=== PATIENT | female | born 1940 | race Caucasian/White ===

== ENCOUNTER → 2020-04-16 10:44 | Outpatient (BNVA) | payer MEDICARE, BC, SELFPAY | PROVIDERS: Visit Provider Nurse Practitioner Family | DX: E78.5 Hyperlipidemia, unspecified (principal); M19.90 Unspecified osteoarthritis, unspecified site; L30.9 Dermatitis, unspecified; R42 Dizziness and giddiness; F39 Unspecified mood [affective] disorder | CPT/HCPCS: 80053; 80061; 85025; 85651; 86038; 86140; 86431 ==

== ENCOUNTER → 2020-07-11 11:25 | Outpatient (BNVA) | payer MEDICARE, BC, SELFPAY | PROVIDERS: Visit Provider Internal Medicine Rheumatology | DX: Z79.899 Other long term (current) drug therapy (principal); Z11.59 Encounter for screening for other viral diseases; Z11.1 Encounter for screening for respiratory tuberculosis; M19.041 Primary osteoarthritis, right hand; M19.042 Primary osteoarthritis, left hand; M70.61 Trochanteric bursitis, right hip; M70.62 Trochanteric bursitis, left hip; Y93.9 Activity, unspecified; R76.8 Other specified abnormal immunological findings in serum | CPT/HCPCS: 36415; 81001; 82306; 85025; 85651; 86140; 86480; 86704; 86803; 87340; 99204 ==

== ENCOUNTER → 2020-08-12 13:53 | Outpatient (BNVA) | payer MEDICARE, BC, SELFPAY | PROVIDERS: PCP Nurse Practitioner Family; Visit Provider Internal Medicine Rheumatology | DX: M35.3 Polymyalgia rheumatica (principal); R76.8 Other specified abnormal immunological findings in serum; Z79.899 Other long term (current) drug therapy; M19.041 Primary osteoarthritis, right hand; M19.042 Primary osteoarthritis, left hand; M54.32 Sciatica, left side; Z79.52 Long term (current) use of systemic steroids | CPT/HCPCS: 99214 ==

== ENCOUNTER → 2020-12-05 10:24 | Outpatient (BNVA) | payer MEDICARE, BC, SELFPAY | PROVIDERS: PCP Nurse Practitioner Family; Visit Provider Nurse Practitioner Family | DX: E78.5 Hyperlipidemia, unspecified (principal) | CPT/HCPCS: 80053; 80061; 85025 ==

== ENCOUNTER 2021-02-07 10:05 | Outpatient (CLI) | payer MEDICARE, BC, SELFPAY ==
--- NOTE | 2021-02-07 10:10 | XR_ITS ---
WS: [id number] HIPS BILATERAL TECHNIQUE: 5 views bilateral hips Including pelvis CLINICAL INFORMATION: M25.551 - Pain in right hip, PAIN IN LEFT HIP COMPARISON: None. FINDINGS: Moderate degenerative arthritis both hips with joint space narrowing. No acute fractures. Normal pubi c rami. Pelvic phleboliths. Mild degenerative arthritis sacroiliac joints. No acute fractures. XR/XR hip BI m 5V wo/w pel* [id number] IMPRESSION: Moderate degenerative arthritis both hips with joint space narrowing. No acute fractures.
--- NOTE | 2021-02-07 10:15 | MR_ITS ---
WS: [id number] MRI LUMBAR SPINE NONCONTRAST TECHNIQUE: Sagittal T1, T2 and STIR imaging. Axial T1 and T2 imaging. CLINICAL INFORMATION: M54.5 - Low back pain COMPARISON: None. FINDINGS: Mild lumbar curve. No acute compression. Slight anterolisthesis L4 on L5. L1-L2: Mild annular bulging. Tiny central protrusion. Slight narrowing of the left subarticular reces s. Foramen are patent. L2-L3: Mild annular bulging with narrowing of subarticular recess bilaterally. Mild facet arthropathy . Mild bilateral foraminal narrowing. Spinal canal is patent. Mild facet arthropathy. L3-L4: Mild annular bulging. Narrowing subarticular recess bilaterally. Foramen are patent. Mild face t arthropathy. L4-L5: Grade 1 anterolisthesis L4 on L5. Left synovial cyst measuring 8 x 7 mm with impingement on th e left subarticular recess and traversing left L5 nerve root. Moderate central canal stenosis. Edema in the left L4 and L5 facets small amount of periarticular soft tissue edema consistent with synoviti s. Moderate facet arthropathy. Foramen are patent. L5-S1: Mild annular bulging. Mild to moderate facet arthropathy. Spinal canal and foramen are patent. Left renal cyst measuring 1.7 CM. Smaller right renal cyst. Tarlov cysts in the sacrum. MR/MR lumbar spine wo con* [id number] IMPRESSION: 1. Mild lumbar curve. No acute compression. 2. Left L4-5 synovial cyst measuring 8 x 7 mm with moderate central canal sten osis. Impingement traversing left L5 nerve root. 3. Small amount of edema in the left L4-L5 and L5-S1 facets with periarticular soft tissue edema consistent with synovitis. 4. Tiny central disc protrusion L1-2. 5. Annular bulging L2-3 and L3-4 with narrowing of the subarticular recess yaz aterally. 6. Mild bilateral L2-3 foraminal narrowing with small bilateral foraminal prot rusions. 7. Moderate facet arthropathy L4-L5.
== END 2021-02-07 10:06 | disposition home or self-care (01) ==
PROVIDERS: PCP Nurse Practitioner Family; Visit Provider Nurse Practitioner Family
DX: M47.816 Spondylosis without myelopathy or radiculopathy, lumbar region (principal); M51.26 Other intervertebral disc displacement, lumbar region; R60.0 Localized edema; M71.38 Other bursal cyst, other site; M16.0 Bilateral primary osteoarthritis of hip
CPT/HCPCS: 72148; 73523

== ENCOUNTER 2021-02-07 10:24 | Outpatient (CLI) | payer MEDICARE, BC, SELFPAY ==
--- NOTE | 2021-02-07 12:00 | XR_ITS ---
WS: [id number] SCREENING DEXA SCAN [employer] CLINICAL INFORMATION: screeening for osteoporosis COMPARISON: None. FINDINGS: The L1-L4 bone mineral density measures 0.778 g/cm2. This corresponds to a T score score of -3.3 and Z score of -1.7. Left femoral neck bone mineral density measures 0.771 g/cm2. This corresponds to a T score of -1.9 an d Z score of 0.0. Right femoral neck bone mineral density measures 0.798 g/cm2. This corresponds to a T score -1.7of an d Z score of 0.2. Mean femoral neck bone mineral density measures 0.785 g/cm2. This corresponds to a T score of -1.8 an d Z score of 0.1. XR/XR DEXA axial skeleton* [id number] IMPRESSION: Osteoporosis Patient's FRAX calculated 10 year probability for major osteoporotic fracture i s 16.6 % and osteoporotic hip fracture is 5.1%.
== END 2021-02-07 10:25 | disposition home or self-care (01) ==
PROVIDERS: PCP Nurse Practitioner Family; Visit Provider Internal Medicine Rheumatology
DX: Z79.52 Long term (current) use of systemic steroids (principal); M81.0 Age-related osteoporosis without current pathological fracture
CPT/HCPCS: 77080

== ENCOUNTER 2021-03-18 06:00 | Outpatient (RCR) | payer MEDICARE, BC, SELFPAY | END 2021-04-09 23:59 | disposition home or self-care (01) | LOC: TPT 06:00 | PROVIDERS: PCP Nurse Practitioner Family; Referring Provider Nurse Practitioner Family; Visit Provider Nurse Practitioner Family | DX: M25.552 Pain in left hip (principal) | CPT/HCPCS: 97110; 97162 ==

== ENCOUNTER → 2021-10-20 11:59 | Outpatient (BNVA) | payer MEDICARE, BC, SELFPAY | PROVIDERS: PCP Nurse Practitioner Family; Visit Provider Nurse Practitioner Family | DX: J32.9 Chronic sinusitis, unspecified (principal); R05.9 Cough, unspecified; R50.9 Fever, unspecified; Z11.52 Encounter for screening for COVID-19; Z13.9 Encounter for screening, unspecified | CPT/HCPCS: 87635 ==

== ENCOUNTER → 2022-01-06 10:32 | Outpatient (BNVA) | payer MEDICARE, BC, SELFPAY | PROVIDERS: PCP Nurse Practitioner Family; Visit Provider Nurse Practitioner Family | DX: F39 Unspecified mood [affective] disorder (principal); E78.5 Hyperlipidemia, unspecified; M35.3 Polymyalgia rheumatica; M19.90 Unspecified osteoarthritis, unspecified site; Z78.0 Asymptomatic menopausal state | CPT/HCPCS: 80053; 80061; 82306; 84443; 86140 ==

== ENCOUNTER → 2023-02-15 10:51 | Outpatient (BNVA) | payer MEDICARE, BC, SELFPAY | PROVIDERS: PCP Nurse Practitioner Family; Visit Provider Nurse Practitioner Family | DX: F39 Unspecified mood [affective] disorder (principal); E55.9 Vitamin D deficiency, unspecified; E78.5 Hyperlipidemia, unspecified; J02.9 Acute pharyngitis, unspecified; K21.9 Gastro-esophageal reflux disease without esophagitis | CPT/HCPCS: 80053; 80061; 82306; 84443; 85025 ==

== ENCOUNTER → 2023-06-28 09:43 | Outpatient (BNVA) | payer MEDICARE, BC, SELFPAY | PROVIDERS: PCP Nurse Practitioner Family; Visit Provider Nurse Practitioner Family | DX: I95.1 Orthostatic hypotension (principal); R42 Dizziness and giddiness | CPT/HCPCS: 80053; 85025 ==

== ENCOUNTER 2023-07-27 09:29 | Outpatient (RCR) | payer MEDICARE, BC, SELFPAY | END 2023-08-10 23:59 | disposition home or self-care (01) | LOC: SPT 09:29 | PROVIDERS: PCP Nurse Practitioner Family; Visit Provider Nurse Practitioner Family | DX: R42 Dizziness and giddiness (principal) | CPT/HCPCS: 95992; 97112; 97161 ==

== ENCOUNTER 2023-08-12 14:00 | Outpatient (CLI) | payer MEDICARE, BC, SELFPAY ==
--- NOTE | 2023-08-12 14:18 | MR_ITS ---
WS: [id number] MRI BRAIN WITH AND WITHOUT CONTRAST HISTORY: DIZZINESS AND GIDDINESS COMPARISON: None available. TECHNIQUE: Multiplanar imaging performed through the brain with MultiHance 14 ml's IV. No acute infarcts are seen. Campos-white matter differentiation is well preserved. Moderate bilateral s ymmetric atrophy and volume loss. Moderate T2 and FLAIR signal hyperintense foci in the periventricul ar white matter. Mild small vessel ischemic disease in the negrito. No large territory infarct. No susceptibility artifacts or prior lacunar infarcts. Ventricles and extra-axial spaces are normal. Clivus and pituitary gland are normal. Visualized posterior fossa and brainstem are also normal. Postcontrast images are negative for masses or vascular malformations. Dural venous sinuses are normal. Paranasal sinuses: Well aerated with no significant disease. Mastoid air cells: Normal. Calvarium and scalp: Normal. IMPRESSION: 1. No acute infarct or hemorrhage. 2. Moderate cerebral atrophy and small vessel ischemic disease. 3. No masses or vascular malformations. 4. No mass or signal abnormality at the cerebellopontine angles or along the internal auditory canal s.
[2023-08-12] MEDS: gadobenate dimeglumine 20 mL vial IV (15:37)
== END 2023-08-12 14:01 | disposition home or self-care (01) ==
LOC: RAD 14:00
PROVIDERS: PCP Nurse Practitioner Family; Visit Provider Otolaryngology
DX: R42 Dizziness and giddiness (principal); G31.9 Degenerative disease of nervous system, unspecified; I67.89 Other cerebrovascular disease
CPT/HCPCS: 70553; A9577

== ENCOUNTER 2023-09-06 13:00 | Outpatient (CLI) | payer MEDICARE, BC, SELFPAY | END 2023-09-06 13:01 | disposition home or self-care (01) | LOC: SLEEP 09-07 13:58 | PROVIDERS: PCP Nurse Practitioner Family; Visit Provider Nurse Practitioner Family | DX: G47.33 Obstructive sleep apnea (adult) (pediatric) (principal); G47.36 Sleep related hypoventilation in conditions classified elsewhere; G47.10 Hypersomnia, unspecified | CPT/HCPCS: G0399 ==

== ENCOUNTER 2023-11-09 11:12 | Outpatient (CLI) | payer MEDICARE, BC, SELFPAY ==
--- NOTE | 2023-11-09 11:15 | USCV_ITS ---
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 MANAGER Technologist: ABBY Exam Location: [facility] [place] Indication: DIZZINESS Risk Factors: Unknown Previous Vascular Surgery: None Right Brachial BP: / Left Brachial BP: / Right Left Velocity (cm/s) Spectral Plaque Velocity (cm/s) Spectral Plaque Syst/Diast Broadening Syst/Diast Broadening 108.10/17.60 Prox CCA 88.90 / 18.80 66.20/ 19.80 Mid CCA 111.90/ 13.70 78.30/ 13.20 Hetro Distal CCA 85.40 / 24.80 Hetro 72.80/ 23.20 Prox ICA 58.00 / 14.30 48.60/ 11.20 Mid ICA 65.10 / 21.50 61.10/ 18.40 Distal ICA 69.00 / 20.80 79.40 ECA 58.60 1.10 ICA/CCA 0.62 Antegrade Vertebral Antegrade 34.20/ 11.80 cm/s 48.80/ 11.10 cm/s Tri Subclavian Tri 82.00 51.40 FINDINGS Comparison: none available. No significant elevation of systolic or diastolic velocities. Diffuse bilateral scattered calcified plaque and intimal thickening throughout the common carotid arteries and extending through the bifurcation. Antegrade vertebral arteries. CONCLUSIONS Bilateral ICA stenosis less than 50%. Dr. Elyssa Williamson DO (Electronically Signed) Final Date: 09 November 2023 13:39 S
== END 2023-11-09 11:13 | disposition home or self-care (01) ==
LOC: RAD 11:12
PROVIDERS: PCP Nurse Practitioner Family; Visit Provider Nurse Practitioner Family
DX: R42 Dizziness and giddiness (principal); R26.81 Unsteadiness on feet; I65.23 Occlusion and stenosis of bilateral carotid arteries
CPT/HCPCS: 93880

== ENCOUNTER → 2024-01-13 09:26 | Outpatient (BNVA) | payer MEDICARE, BC, SELFPAY | PROVIDERS: PCP Nurse Practitioner Family; Visit Provider Nurse Practitioner Family | DX: R07.9 Chest pain, unspecified (principal) | CPT/HCPCS: 93005 ==

== ENCOUNTER 2024-01-13 10:48 | Observation (INO) | payer MEDICARE, BC, SELFPAY ==
[2024-01-13] VITALS (9 sets, daily range): BP systolic 119–146; BP diastolic 65–85; PULSE 60–73; RESP 14–19; TEMP 36.7–36.8; O2SAT 93–100; BMI 25.8; BMI 28.3
--- NOTE | 2024-01-13 10:52 | XR_ITS ---
WS: [id number] Examination: XR chest 1V portable [id number] Reason for Exam: cp Date: January 13, 2024 Comparison: None. Findings: The heart is prominent in size. A large hiatal hernia is suspected. The mediastinum is not widened There is no edema or effusion. There is no dense consolidation. Impression: There is cardiomegaly without failure A large hiatal hernia is suspected.
--- NOTE | 2024-01-13 10:53 | ECG_ITS ---
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 Measurements Intervals [place] Rate: 57 P: 139 [place]: 156 QRS: 29 QRSD: 87 T: 110 QT: 450 QTc: 442 Interpretive Statements ECTOPIC ATRIAL BRADYCARDIA Nonspecific T wave changes LOW QRS VOLTAGE IN PRECORDIAL LEADS [QRS DEFLECTION < 1.0 mV IN CHEST LEADS] SEPTAL MYOCARDIAL INFARCTION , PROBABLY OLD [40+ ms Q WAVE IN V1/V2] No previous ECG available for comparison Electronically Signed On 01-13-2024 14:03:37 CDT by Leora Ocampo M.D. [email or web address].[email or web address]/store/NU/[id number] f
--- NOTE | 2024-01-13 10:53 | ED_ITS ---
HPI - Chest Pain 2 General: Chief Complaint: Chest Pain Stated Complaint: chest pain Time Seen by Provider: 01/13/24 10:50 Source: patient and EMS Mode of arrival: EMS Limitations: no limitations History of Present Illness: 83-year-old female states that last 2 da ys she has been having chest pain states that a dull ache in the center of her chest she went to the clinic today and then called EMS she had 324 aspirin they did give her nitro and states that resolved her pain. She has no history of heart disease she denies any worsening factors denies any shortness of breath denies any nausea. Associated symptoms: Deny abdominal pain, fever(s), nausea or vomiting Review of Systems 2 Const: Denies: fever(s), chills, body aches or change in appetite Eyes: Denies: blurry vision or eye discomfort ENMT: Denies: throat pain or dental pain Card: Reports: chest pain GI: Denies: abdominal pain, nausea, vomiting or diarrhea Musc: Denies: neck pain or back pain Skin/Breast: Denies: rash Neuro: Denies: headache(s) PFSH ED 2 PFSH: Medical History GERD (gastroesophageal reflux disease) Sciatica, left side SS-A antibody positive Encounter for counseling regarding immunization High risk medication use Osteoarthritis of hands, bilateral Joint pain Positive RIVERA (antinuclear antibody) PMR (polymyalgia rheumatica) Mood disorder Seasonal allergies Hyperlipidemia Surgical History No history of previous surgery Family History Other CAD (coronary artery disease) Cancer Hyperlipidemia Hypertension Lung disease Rheumatoid arthritis Stroke Denies family history of Diabetes Lupus Chronic kidney disease (CKD) Family history of premature coronary artery disease Social History Smoking and tobacco/nicotine status: never used tobacco/nicotine Second hand smoke exposure: No Alcohol intake: never Substance/Drug Use: never Lives independently: Yes Household members: spouse Marital status: service: No Current occupational status: employed Current occupation: [employer] Current gender identity: Female Special gino needs: No Agree to transfusion: Yes Physical Exam 2 Const: COMMON NORMALS: no acute distress, patient oriented x3 and healthy appearing HENMT: COMMON NORMALS: normocephalic and atraumatic HEAD & SCALP: n ormocephalic and atraumatic Eye: COMMON NORMALS: Equal, round and reactive pupils present and EOMs intact bilaterally PUPIL: Yes Equal, round and reactive pupils present Neck/C-Spine: COMMON NORMALS: full ROM and supple Chest: COMMONS NORMALS: normal inspection of the chest and normal palpation of entire chest wall Resp: COMMON NORMALS: normal respiratory effort, No retractions, No use of accessory muscles and clear to auscultation bilaterally AUSCULTATION: clear to auscultation bilaterally Cardio: COMMON NORMALS: regular rate, regular rhythm and No murmurs present (Cardio) RATE: regular rate RHYTHM: regular rhythm GI: COMMON NORMALS: Normal to inspection, nondistended, normoactive bowel sounds present, Soft to palpation, non-tender and no masses PALPATION: Yes Soft to palpation Extremity: COMMON NORMALS: normal to inspection and full ROM Neuro: COMMON NORMALS: patient oriented x3, moves all extremities and no focal motor deficits Psych: COMMON NORMALS: mental status grossly normal, Normal thought process present and cooperative THOUGHT PROCESS: Normal thought process present Skin: COMMON NORMALS: no rashes or lesions noted and no wounds GENERAL SKIN EXAM: no rashes or lesions noted Course 2 Vital Signs: Vital signs: Vital Signs Temperature 98.1 F 01/13/24 10:59 Pulse Rate 62 01/13/24 10:54 Respiratory Rate 18 01/13/24 10:54 Blood Pressure 125/85 01/13/24 10:54 Pulse Oximetry 100 01/13/24 10:54 Oxygen Delivery Me thod Room Air 01/13/24 10:54 MDM - Chest Pain Medical Decision Making Patient presents here chest pain pain was resolved with nitro for troponin was negative she has had no history of heart disease was never had any cardiac workup she does have T wave inversion in V1 will admit for observation this time. Medical Records I reviewed the patient's medical records. Lab Data I reviewed the patient's lab results. 01/13/24 11:22 01/13/24 10:58 Laboratory Results WBC 4.16 10^3/uL (3.29-11.43) 01/13/24 11:22 Corrected WBC Cancelled 01/13/24 10:58 RBC 4.09 10^6/uL (3.85-5.65) 01/13/24 11:22 Hgb 13.30 g/dL (11.27-16.99) 01/13/24 11:22 Hct 39.7 % (36-47) 01/13/24 11:22 MCV 97.1 fl (85-98) 01/13/24 11:22 MCH 32.5 pg (27-33) 01/13/24 11:22 MCHC 33.5 g/dL (30-55) 01/13/24 11:22 RDW 13.2 % (12.1-15.1) 01/13/24 11:22 Plt Count 218 10^3/cmm (157-399) 01/13/24 11:22 MPV 10.3 fL (7.4-10.4) 01/13/24 11:22 Gran % Cancelled 01/13/24 10:58 Neut % (Auto) 57.0 % 01/13/24 11:22 Lymph % (Auto) 26.0 % 01/13/24 11:22 [place] % (Auto) 10.6 % 01/13/24 11:22 Eos % (Auto) 5.0 % 01/13/24 11:22 Baso % (Auto) 1.2 % 01/13/24 11:22 Neut # (Auto) 2.37 10^3/uL (1.8-7.7) 01/13/24 11:22 Lymph # (Auto) 1.1 10^3/uL (0.8-4.8) 01/13/24 11:22 [place] # (Auto) 0.4 10^3/uL (0.2-0.9) 01/13/24 11:22 Eos # (Auto) 0.2 10^3/uL (0.0-0.8) 01/13/24 11:22 Baso # (Auto) 0.1 10^3/uL (0.0-0.1) 01/13/24 11:22 Absolute Gran (auto) Cancelled 01/13/24 10:58 Nucleated RBC % (auto) 0 % 01/13/24 11:22 Nucleated RBCs # 0.0 /100WBC 01/13/24 11:22 PT Cancelled 01/13/24 10:58 INR Cancelled 01/13/24 10:58 Sodium 139 mmol/L (136-145) 01/13/24 10:58 Potassium 4.4 mmol/L (3.5-5.1) 01/13/24 10:58 Chloride 106 mmol/L (98-107) 01/13/24 10:58 Carbon Dioxide 24 mmol/L (22-29) 01/13/24 10:58 Anion Gap 13.4 (5-19) 01/13/24 10:58 BUN 9 mg/dL (8-23) 01/13/24 10:58 Creatinine 0.5 mg/dL (0.5-0.9) 01/13/24 10:58 GFR Calculation Not Reportable 01/13/24 10:58 Glucose 83 mg/dL (65-115) 01/13/24 10:58 Calculated Osmolality 286 mOsm/kg (285-295) 01/13/24 10:58 Calcium 8.4 mg/dL (8.5-10.5) L 01/13/24 10:58 Total Bilirubin 0.9 mg/dL (0.15-1.2) 01/13/24 10:58 AST 16 U/L (0-32) 01/13/24 10:58 ALT 10 U/L (0-33) 01/13/24 10:58 Alkaline Phosphatase 58 U/L (35-105) 01/13/24 10:58 Troponin T Baseline 7 ng/L (0-10) 01/13/24 10:58 Total Protein 6.0 g/dL (6.6-8.7) L 01/13/24 10:58 Albumin 3.7 g/dL (3.5-5.2) 01/13/24 10:58 Globulin 2.3 g/dL (1.3-4.6) 01/13/24 10:58 Lipase 47 U/L (13-60) 01/13/24 10:58 All radiology interpretation(s) finalized by discharge EKG Data EKG 1: I personally reviewed and interpreted this EKG as follows: EKG interpretation date: 01/13/24 EKG interpretation time: 10:53 Interpretation: sinus yobani hr [address] elevation qrs 87 qtc 445 Discharge Plan Discharge Condition: Stable Prescriptions: No Action ibuprofen 200 mg capsule 200 mg PO BEDTIME PRN (Reason: Sleep) meclizine 25 mg tablet 25 mg PO TID PRN (Reason: dizziness) Qty: 30 0RF (DME) auto titrating cpap at 6-16cm See Rx Instructions .Route .MEDSUPPLY Qty: 1 0RF Rx Instructions: As directed fluticasone propionate 50 mcg/actuation spray,suspension 2 spray INTRANASAL DAILY PRN (Reason: Allergy Symptoms) Laxative Pills 25 mg Tablet 25 mg PO QPM escitalopram oxalate 20 mg tablet 20 mg PO BEDTIME Referrals: Patt Chan, LASHAUN [Primary Care Provider] - Coding Level of Care Code ED Engineering Officer for Russg Anatoliy
[2024-01-13 11:24] LABS: Alanine Aminotransferase 10 U/L (0-33); Albumin Level 3.7 g/dL (3.5-5.2); Alkaline Phosphatase 58 U/L (35-105); Anion Gap 13.4 (5-19); Aspartate Amino Transferase 16 U/L (0-32); Blood Urea Nitrogen 9 mg/dL (8-23); Calcium 8.4 mg/dL (8.5-10.5); Carbon Dioxide 24 mmol/L (22-29); Chloride 106 mmol/L (98-107); Creatinine Clr Calc Pharmacy 54.3464; Globulin 2.3 g/dL (1.3-4.6); Glucose 83 mg/dL (65-115); Lipase 47 U/L (13-60); Osmolality Calculated 286 mOsm/kg (285-295); Potassium 4.4 mmol/L (3.5-5.1); Sodium 139 mmol/L (136-145); Total Bilirubin 0.9 mg/dL (0.15-1.2)
[2024-01-13 11:25] LABS: Troponin(5th) Baseline 7 ng/L (0-10)
[2024-01-13 11:29] LABS: Basophils # 0.1 10^3/uL (0.0-0.1); Basophils % 1.2 %; Eosinophils # 0.2 10^3/uL (0.0-0.8); Hematocrit 39.7 % (36-47); Lymphocytes # 1.1 10^3/uL (0.8-4.8); Mean Corpuscular HGB Conc 33.5 g/dL (30-55); Mean Corpuscular Hemoglobin 32.5 pg (27-33); Mean Corpuscular Volume 97.1 fl (85-98); Mean Platelet Volume 10.3 fL (7.4-10.4); Monocytes # 0.4 10^3/uL (0.2-0.9); Monocytes % 10.6 %; Neutrophils # 2.37 10^3/uL (1.8-7.7); Nucleated Red Blood Cells % 0 %; Platelet Count 218 10^3/cmm (157-399); Red Blood Count 4.09 10^6/uL (3.85-5.65); Red Cell Distribution Width 13.2 % (12.1-15.1); White Blood Count 4.16 10^3/uL (3.29-11.43)
--- NOTE | 2024-01-13 12:53 | ECG_ITS ---
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 Measurements Intervals [place] Rate: 55 P: 146 IN: 154 QRS: 21 QRSD: 74 T: 113 QT: 464 QTc: 447 Interpretive Statements ECTOPIC ATRIAL BRADYCARDIA LOW QRS VOLTAGE IN PRECORDIAL LEADS [QRS DEFLECTION < 1.0 mV IN CHEST LEADS] SEPTAL MYOCARDIAL INFARCTION , PROBABLY OLD [40+ ms Q WAVE IN V1/V2] Compared to ECG 01/13/2024 10:53:00 No significant changes Electronically Signed On 01-14-2024 17:27:46 CDT by Leora Ocampo M.D. [email or web address]/store/OM/[id number]
[2024-01-13 13:21] LABS: INR 1.01 (0.8-1.2)
[2024-01-13 13:29] LABS: Troponin 5 2HR 9.07 ng/L (0-10); Troponin 5 2HR Delta 2.07 ABS# (0-10)
--- NOTE | 2024-01-13 14:30 | ECG_ITS ---
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 Measurements Intervals [place] Rate: 63 P: 56 SD: 154 QRS: -6 QRSD: 75 T: 21 QT: 422 QTc: 432 Interpretive Statements SINUS RHYTHM SEPTAL MYOCARDIAL INFARCTION , PROBABLY OLD [40+ ms Q WAVE IN V1/V2] Compared to ECG 01/13/2024 12:59:37 Bradycardia, nonsinus no longer present Myocardial infarct finding still present Electronically Signed On 01-14-2024 17:03:57 CDT by Leora Ocampo M.D. [email or web address] Power [email or web address] behavioral [email or web address]. [email or web address] hospital.BATS/store/OM/[id number]
--- NOTE | 2024-01-13 14:37 | P.HP_ITS ---
Providers/Chief Complaint 2 Admitting Physician: Milind Castañeda DO Primary Care Provider: LASHAUN Lew Chief Complaint: chest pain History of Present Illness Yady Carrillo is a 83 year old female no significant past medical history presents with a 1 day history of chest pain. She describes this as not sharp pain but denies pressure. She states it was midline it did go into her left neck and left scapula. She denies shortness of breath or nausea vomiting with it. She was not active during this chest pain. However she was at work and got really extremely tired and needed to lay down and take a nap which is unusual for her. She has not strained herself further since then but has had on and off pain with radiation. Evaluation in the emergency room is negative troponins. She does have EKG changes with an ectopic atrial bradycardia and a septal myocardial infarction probably old. She will be admitted for observation and stress test tomorrow. Review of Systems 2 Const: Denies: fever(s) or chills Eyes: Denies: change in vision ENMT: Denies: throat pain or nasal congestion Card: Denies: palpitations Resp: Denies: dyspnea or productive cough GI: Reports: heartburn and bloating; Denies: abdominal pain, nausea, vomiting or change in stool character : Denies: dysuria Musc: Denies: back pain or extremity pain Skin/Breast: Denies: rash or lesions Neuro: Denies: headache(s) or dizziness Psych: Reports: anxiety; Denies: depression Jeff/Lymph: Denies: easy bruising or easy bleeding Medications/Allergies Home Medications Medication Instructions Recorded Confirmed Last Taken Type ibuprofen 200 mg capsule 200 mg PO BEDTIME PRN Sleep 07/11/20 01/13/24 Unknown History meclizine 25 mg tablet 25 mg PO TID PRN dizziness #30 tabs 07/02/23 01/13/24 Unknown Rx auto titrating cpap at 6-16cm #1 ea 09/17/23 01/13/24 Unknown Rx escitalopram oxalate 20 mg tablet 20 mg PO BEDTIME 01/13/24 01/13/24 01/12/24 History fluticasone propionate 50 2 spray intranasal DAILY PRN 01/13/24 01/13/24 01/12/24 History mcg/actuation nasal Allergy Symptoms spray,suspension sennosides 25 mg tablet (Laxative 25 mg PO QPM 01/13/24 01/13/24 01/12/24 History Pills) Allergies Allergy/AdvReac Type Severity Reaction Status Date / Time Sulfa (Sulfonamide Allergy Mild ALGY-Rash Verified 01/13/24 11:11 Antibiotics) PFSH Acute 2 PFSH: Medical History GERD (gastroesophageal reflux disease) Sciatica, left side SS-A antibody positive Encounter for counseling regarding immunization High risk medication use Osteoarthritis of hands, bilateral Joint pain Positive RIVERA (antinuclear antibody) PMR (polymyalgia rheumatica) Mood disorder Seasonal allergies Hyperlipidemia Surgical History No history of previous surgery Family History Other CAD (coronary artery disease) Cancer Hyperlipidemia Hypertension Lung disease Rheumatoid arthritis Stroke Denies family history of Diabetes Lupus Chronic kidney disease (CKD) Family history of premature coronary artery disease Social History Smoking and tobacco/nicotine status: never used tobacco/nicotine Second hand smoke exposure: No Alcohol intake: never Substance/Drug Use: never Lives independently: Yes Household members: spouse Marital status: service: No Current occupational status: employed Current occupation: [employer] Current gender identity: Female Special gino needs: No Agree to transfusion: Yes Vitals/I&O/Wt Last Vital Signs Temp 98.1 F 01/13/24 10:59 Pulse 65 01/13/24 13:26 Resp 17 01/13/24 13:26 BP 126/84 01/13/24 13:26 Pulse Ox 94 01/13/24 13:26 O2 Del Method Room Air 01/13/24 13:26 Weight last 48 hrs Weight 72.575 kg Physical Exam 2 Narrative: Patient is an 83-year-old woman who looks younger than her stated age she is in no acute assist distress at time of exam. She appears well-nourished and well- hydrated. HEENT head is normocephalic atraumatic pupils equal round and reactive to light and commendation extraocular muscles intact nasopharyngeal mucosa moist and pink without lesions or exudate patient has normal dentition neck is supple no JVD carotid bruits or lymphadenopathy Chest: Rises symmetrically with inspiration she does have tenderness to palpation bilateral costochondral angles. Heart: A few ectopic beats auscultated. Otherwise normal S1-S2 without murmur click gallop or rub Lungs clear to auscultation without wheezes rales or rhonchi Abdomen: Soft mild tenderness in epigastric to palpation normal active bowel sounds no hepatosplenomegaly Extremities trace pretibial edema bilaterally, good color, pulses intact Skin: Warm and dry no lesions or rashes noted Psych: Mood and affect appropriate for condition Back: Noted thoracic kyphosis. No scoliosis. No CVA tenderness Data 01/13/24 11:22 01/13/24 10:58 Other Labs: First troponin 7-second troponin 9. EKG 2: My Interpretation: Heart rate 55 MS interval 154 QRS interval 74 QT corrected 447 Bradycardia with ectopy at Q wave in V2 however V1 appears to be upward voltage questionable abnormal EKG No change since first EKG EKG computer-generated impression: ECTOPIC ATRIAL BRADYCARDIA LOW QRS VOLTAGE IN PRECORDIAL LEADS [QRS DEFLECTION < 1.0 mV IN CHEST LEADS] SEPTAL MYOCARDIAL INFARCTION , PROBABLY OLD [40+ ms Q WAVE IN V1/V2] Compared to ECG 01/13/2024 10:53:00 No significant changes A&P Assessment and plan (1) Chest pain at rest: Placed in observation status. Second troponin is negative for LA. Await third troponin. Plan for stress test in AM. Aspirin morphine as needed and Nitropaste for chest pain. (2) YAHAIRA (obstructive sleep apnea): Has had CPAP at home for 2 months but has not been able to use it the last couple weeks due to very uncomfortable. (3) GERD (gastroesophageal reflux disease): Takes yrwq-ylw-diwtbjl antiacids Qualifiers: Esophagitis presence: esophagitis presence not specified Qualified Code(s): K21.9 - Gastro-esophageal reflux disease without esophagitis Attestations 2 Medical Necessity Statement*: Patient requires hospitalization for at least 1 midnight for stress testing tomorrow given a good story of chest pain but may be cardiac in nature. Coding Level of Care Code Acute Code for [facility] Diagnoses Chest pain at rest R07.9 YAHAIRA (obstructive sleep apnea) G47.33 Gastroesophageal reflux disease, unspecified whether esophagitis present K21.9 Esophagitis presence: esophagitis presence not specified
[2024-01-13] MEDS: nitroglycerin 1 gm/inch oint Pkt 1 INCH TOPICAL ×2 (15:08→20:32)
[2024-01-13] MEDS: enoxaparin 40 mg/0.4 mL Syringe SUBCUT (15:08)
[2024-01-13] MEDS: dextrose 5%-sod chloride 0.9% 1,000 ML 75 ML IV (15:09)
--- NOTE | 2024-01-13 16:30 | ECG_ITS ---
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 Measurements Intervals [place] Rate: 59 P: 54 [place]: 153 QRS: -12 QRSD: 94 T: 31 QT: 442 QTc: 441 Interpretive Statements SINUS BRADYCARDIA SEPTAL MYOCARDIAL INFARCTION , PROBABLY OLD [40+ ms Q WAVE IN V1/V2] Compared to ECG 01/13/2024 15:13:09 Sinus rhythm no longer present Myocardial infarct finding still present Electronically Signed On 01-14-2024 17:32:14 CDT by Leora Ocampo M.D. [email or web address].Memeoirs/store/[id number]
[2024-01-13] MEDS: famotidine 20 mg Tablet PO (17:41)
[2024-01-13] MEDS: acetaminophen 325 mg Tablet 650 MG PO (17:41)
[2024-01-13 19:34] LABS: Troponin 5 6HR 6.34 ng/L (0-10)
[2024-01-13 19:37] LABS: Troponin 5 6HR Delta -0.66 ng/L (0-12)
[2024-01-13] MEDS: alum-mag-hydroxide-sime 30 mL UDC 15 ML PO (22:45)
[2024-01-13] MEDS: morphine 4 mg/mL SDV 1 mL 2 MG IVP (22:45)
[2024-01-14] VITALS (9 sets, daily range): BP systolic 112–174; BP diastolic 52–86; PULSE 64–87; RESP 14–19; TEMP 36.6–36.7; O2SAT 90–100
--- NOTE | 2024-01-14 | ECG_ITS ---
[facility] Test Date: 2024-01-14 Pat Name: Yady Carrillo Department: Room: 112 Gender: Female Machine Stuffer: : 1940 Requested By: Milind Castañeda Order Number: [id number] Medina MD: Houston Fonseca M.D. Interpretive Statements NAME OF STUDY: TREADMILL STRESS ECHOCARDIOGRAM INDICATION: [Chest Pain] EXERCISE DATA: The patient was exercised by Jhonny protocol. Baseline heart rate was 65 beats per minute. Baseline blood pressure was 135/69 millimeters of mercury. Maximal predicted heart rate was 137 beats per minute. Maximum heart rate achieved was 119 which was 86% of the maximum predicted heart rate. Maximum blood pressure was 178/74 millimeters of mercury. Total exercise time was 4 minutes 54 seconds. Maximum METs achieved was 6. The reason for ending the test was shortness of breath and leg fatigue, target heart rate achieved. The patient complained of shortness of breath and leg fatigue during the stress test, which then resolved at the end of the test. ELECTROCARDIOGRAM: BASELINE: Showed sinus rhythm, normal axis, no significant ST-T changes at the baseline noted. [] EXERCISE: At the peak exercise level, [] No significant ST-T changes suggestive of ischemia noted. [] RECOVERY: During the recovery period, heart rate dropped appropriately. No significant ST-T changes in the recovery suggestive of ischemia noted. [] CONCLUSION: 1. Exercise capacity is poor. 2. Heart rate response was appropriate. 3. Blood pressure response was appropriate. 4. Symptoms not suggestive of ischemia. 5. Electrocardiogram portion of the stress test was not suggestive of ischemia. 6. Stress echocardiogram will be documented separately. Electronically Signed On 01-27-2024 12:03:21 CDT by Houston Fonseca M.D. [email or web address]
[2024-01-14] MEDS: dextrose 5%-sod chloride 0.9% 1,000 ML 75 ML IV (04:07)
--- NOTE | 2024-01-14 08:50 | PC.CHAP ---
Pastoral Care Encounter/Spiritual Assessment Type of Contact [] Declined vrt mechanic visit [] Patient/Family/Request visit [] Outpatient visit [] Follow-up visit [] Physician referral [] Code/Alert [x] Routine visit [] Staff referral [] Actively dying [] Patient sleeping [] Family support [] [] Out of room [] Palliative care [] [] Receiving care in room [] Pre-surgical visit [] Trauma [] Long length of stay [] ICU visit [] Other: Relational/Emotional Strength [x] Patient feels connected with others/family/visitors/staff [] Distress [] Loneliness/isolation [] Abandonment Spirituality of Patient [x] Person of Vilma [] Attends Judaism of their Vilma [x] Believes in Prayer [] Reads Bible or Pentecostalism materials [] There are Spiritual issues to be addressed Waistline Joiner Interventions [x] Prayer [x] Active listening [] Non-anxious presence [x] Spiritual/emotional support [] Crisis/trauma care [] Spiritual counseling [] Bereavement support [] Provided bereavement packet [] Provided Bible/devotional materials [] Provided toy/stuffed animal, coloring book to patient or family member [] Provided Communion [] Anointing/[place] [] Salvation [x] Completed spiritual assessment [] Other: Impact on Illness or Injury [] Angry [] Fearful [] Anxious [] Often cries [] Exhaustion [] Unable to work [] Unable to attend pentecostal [] Unable to walk/stand [] Unable to read [] Unable to drive [] Unable to eat/drink [] Unable to sleep [] Unable to be with family [] Patient intubated [] Other: Summary Time spent with patient 5 min
--- NOTE | 2024-01-14 08:58 | USCV_ITS ---
Stress Echo Yady Carrillo Age: 83 Gender: F : 1940 Exam Date: 01/14/2024 12:45 Ordering Phys: Milind Castañeda DO Technologist: Tanika Dhaliwal [place] [facility] [place] CHEST PAIN Rhythm: Atrial fibrillation Patient History: Chest pain Cardiac Medications: NONE Medications in past 24 hours: NONE Contrast: Stress Results Protocol: Jhonny Total dose(mL): Exercise Duration (min:sec): METS: Resting HR: 65 Resting BP: 135 / 69 Peak HR: 119 Peak BP: 178 / 94 Max Predicted HR: 137 87 % Max Predicted HR Target HR: 116 Double Product: 31300 Stress Summary: The patient's target heart rate was achieved The hemodynamic response to exercise was normal BP Response: Normal Reason for Termination: Maximal effort/unable to continue Cardiac Symptoms: Short of Breath, Leg fatigue ECG Analysis Resting ECG: Normal sinus rhythm with PACs. No significant ST T wave changes Stress ECG: Sinus tachycardia. Target heart rate is achieved. No significant ST T wave changes Arrhythmia: None MEASUREMENTS (Male/Female) Normal Values 2D ECHO LVOT Diameter 2.0 cm LV Ejection Fraction MOD 2C 57.3 % LV Ejection Fraction 2C AL 58.0 % LA Diameter 3.1 cm Aorta at Sinotubular Diameter 2.0 cm FINDINGS At baseline LV systolic function is normal with EF of 55-60%. No regional wall motion abnormalities. ECHO images are obtained at significantly lower heart rates than target heart rate, no regional wall motion abnormaities seen. Highest heart rate at which stress images are obtained is still 2 beats below target heart rate. Rest of stress images area obtained 8-10 beats below target. LV EF increased appropriately CONCLUSIONS 1) Baseline echocardiogram shows normal LV systolic function. 2) Stress test is indeterminate to rule out ischemia as images obtained at significantly lower heart rates than target. 3)EKG portion of stress test does not show ischemia Houston Fonseca MD (Electronically Signed) Final Date: 14 January 2024 15:20 S
[2024-01-14] MEDS: famotidine 20 mg Tablet PO (09:10)
[2024-01-14] MEDS: acetaminophen 325 mg Tablet 650 MG PO (10:13)
--- NOTE | 2024-01-14 16:39 | P.DS_ITS ---
Discharge Providers Date of Admission: 01/13/24 12:27 Date of Discharge: January 14, 2024 Attending Provider at Admission: Milind Castañeda DO Attending Provider at Discharge: Milind Castañeda DO Primary Care Provider: LASHAUN Lew Diagnoses at Discharge Discharge Diagnosis (1) Chest pain at rest: Status: Acute (2) YAHAIRA (obstructive sleep apnea): Status: Acute (3) GERD (gastroesophageal reflux disease): Status: Acute Qualifiers: Esophagitis presence: esophagitis presence not specified Qualified Code(s): K21.9 - Gastro-esophageal reflux disease without esophagitis Reason for Visit Reason for Visit: chest pain Brief History: Patient had chest pain at rest describes it as a dull ache with symptoms radiating into the left shoulder and slightly into the left neck. Her symptoms were not at rest she did not have shortness of breath or nausea or vomiting. She used Maalox at home with no resolution. She has no cardiac history no hypertension no diabetes. No history of stroke. She did have a mother that who had heart attack and her sister has had a heart attack. Workup was negative in the emergency room and she was placed in observation for stress test. Hospital Course Hospital Course Patient continued to have some chest pain the first day of hospitalization she was placed on nitro patch which took the pain away. She did suffer a headache from this. Today she had an exercise stress echo. 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 Patient did not have any symptoms during exam except for fatigue and muscle tiredness. Patient relates a strong history for GERD symptoms. I suspect this may be GERD related and will DC home on PPI twice daily on empty stomach. She was also given instructions to restart her CPAP as long as possible at night. Physical Exam Narrative: Heart: normal S1-S2 without murmurs clicks gallops or rubs Lungs clear to auscultation without wheezes rales or rhonchi Abdomen: Soft mild tenderness in epigastric to palpation normal active bowel sounds no hepatosplenomegaly Extremities trace pretibial edema bilaterally, good color, pulses intact Discharge Data Studies Completed and Pending Completed Studies During Hospitalization Category Date Time Status Cardiac Stress Test Request Routine Exams 01/14/24 06:00 Draft XR chest 1V portable [id number] Stat Exams 01/13/24 10:52 [place] [id number] Routine Ultrasound 01/14/24 08:58 Completed Pending at discharge Category Date Time Status Cardiac Stress Test Request Routine Exams 01/14/24 08:58 Ordered Laboratory Results WBC 4.16 10^3/uL (3.29-11.43) 01/13/24 11:22 Corrected WBC Cancelled 01/13/24 10:58 RBC 4.09 10^6/uL (3.85-5.65) 01/13/24 11:22 Hgb 13.30 g/dL (11.27-16.99) 01/13/24 11:22 Hct 39.7 % (36-47) 01/13/24 11:22 MCV 97.1 fl (85-98) 01/13/24 11:22 MCH 32.5 pg (27-33) 01/13/24 11:22 MCHC 33.5 g/dL (30-55) 01/13/24 11:22 RDW 13.2 % (12.1-15.1) 01/13/24 11:22 Plt Count 218 10^3/cmm (157-399) 01/13/24 11:22 MPV 10.3 fL (7.4-10.4) 01/13/24 11:22 Gran % Cancelled 01/13/24 10:58 Neut % (Auto) 57.0 % 01/13/24 11:22 Lymph % (Auto) 26.0 % 01/13/24 11:22 [place] % (Auto) 10.6 % 01/13/24 11:22 Eos % (Auto) 5.0 % 01/13/24 11:22 Baso % (Auto) 1.2 % 01/13/24 11:22 Neut # (Auto) 2.37 10^3/uL (1.8-7.7) 01/13/24 11:22 Lymph # (Auto) 1.1 10^3/uL (0.8-4.8) 01/13/24 11:22 [place] # (Auto) 0.4 10^3/uL (0.2-0.9) 01/13/24 11:22 Eos # (Auto) 0.2 10^3/uL (0.0-0.8) 01/13/24 11:22 Baso # (Auto) 0.1 10^3/uL (0.0-0.1) 01/13/24 11:22 Absolute Gran (auto) Cancelled 01/13/24 10:58 Nucleated RBC % (auto) 0 % 01/13/24 11:22 Nucleated RBCs # 0.0 /100WBC 01/13/24 11:22 PT 13.60 SECONDS (12.1-14.9) 01/13/24 12:56 INR 1.01 (0.8-1.2) 01/13/24 12:56 Sodium 139 mmol/L (136-145) 01/13/24 10:58 Potassium 4.4 mmol/L (3.5-5.1) 01/13/24 10:58 Chloride 106 mmol/L (98-107) 01/13/24 10:58 Carbon Dioxide 24 mmol/L (22-29) 01/13/24 10:58 Anion Gap 13.4 (5-19) 01/13/24 10:58 BUN 9 mg/dL (8-23) 01/13/24 10:58 Creatinine 0.5 mg/dL (0.5-0.9) 01/13/24 10:58 GFR Calculation Not Reportable 01/13/24 10:58 Glucose 83 mg/dL (65-115) 01/13/24 10:58 Calculated Osmolality 286 mOsm/kg (285-295) 01/13/24 10:58 Calcium 8.4 mg/dL (8.5-10.5) L 01/13/24 10:58 Total Bilirubin 0.9 mg/dL (0.15-1.2) 01/13/24 10:58 AST 16 U/L (0-32) 01/13/24 10:58 ALT 10 U/L (0-33) 01/13/24 10:58 Alkaline Phosphatase 58 U/L (35-105) 01/13/24 10:58 Troponin T Baseline 7 ng/L (0-10) 01/13/24 10:58 Troponin T 120 Minute 9.07 ng/L (0-10) 01/13/24 12:56 Delta Troponin T 2.07 ABS# (0-10) 01/13/24 12:56 Troponin T Hi Sens 6Hr 6.34 ng/L (0-10) 01/13/24 17:07 Troponin T Hi Sens 6Hr Delta -0.66 ng/L (0-12) L 01/13/24 17:07 Total Protein 6.0 g/dL (6.6-8.7) L 01/13/24 10:58 Albumin 3.7 g/dL (3.5-5.2) 01/13/24 10:58 Globulin 2.3 g/dL (1.3-4.6) 01/13/24 10:58 Lipase 47 U/L (13-60) 01/13/24 10:58 Procedures Performed Stress Summary: The patient's target heart rate was achieved The hemodynamic response to exercise was normal BP Response: Normal Reason for Termination: Maximal effort/unable to continue Cardiac Symptoms: Short of Breath, Leg fatigue ECG Analysis Resting ECG: Normal sinus rhythm with PACs. No significant ST T wave changes Stress ECG: Sinus tachycardia. Target heart rate is achieved. No significant ST T wave changes Arrhythmia: None MEASUREMENTS (Male/Female) Normal Values 2D ECHO LVOT Diameter 2.0 cm LV Ejection Fraction MOD 2C 57.3 % LV Ejection Fraction 2C AL 58.0 % LA Diameter 3.1 cm Aorta at Sinotubular Diameter 2.0 cm FINDINGS At baseline LV systolic function is normal with EF of 55-60%. No regional wall motion abnormalities. ECHO images are obtained at significantly lower heart rates than target heart rate, no regional wall motion abnormaities seen. Highest heart rate at which stress images are obtained is still 2 beats below target heart rate. Rest of stress images area obtained 8-10 beats below target. LV EF increased appropriately CONCLUSIONS 1) Baseline echocardiogram shows normal LV systolic function. 2) Stress test is indeterminate to rule out ischemia as images obtained at significantly lower heart rates than target. 3)EKG portion of stress test does not show ischemia Vitals Last Vital Signs Temp 98.0 F 01/14/24 16:00 Pulse 71 01/14/24 16:00 Resp 15 01/14/24 16:00 BP 129/69 01/14/24 16:00 Pulse Ox 95 01/14/24 16:00 O2 Del Method Room Air 01/14/24 16:00 Discharge Plan Discharge Patient Disposition: Home Condition: Stable Prescriptions: New pantoprazole [Protonix] 40 mg tablet,delayed release (DR/EC) 40 mg PO BID Qty: 60 1RF Rx Instructions: twice a day on an empty stomach for 2 months and if no more chest pain then once daily Continued ibuprofen 200 mg capsule 200 mg PO BEDTIME PRN (Reason: Sleep) meclizine 25 mg tablet 25 mg PO TID PRN (Reason: dizziness) Qty: 30 0RF (DME) auto titrating cpap at 6-16cm See Rx Instructions .Route .MEDSUPPLY Qty: 1 0RF Rx Instructions: As directed fluticasone propionate 50 mcg/actuation spray,suspension 2 spray INTRANASAL DAILY PRN (Reason: Allergy Symptoms) Laxative Pills 25 mg Tablet 25 mg PO QPM escitalopram oxalate 20 mg tablet 20 mg PO BEDTIME Discharge Orders: Discharge Order (Routine); Ordered 01/14/24 Ordered By: Milind Castañeda Referrals: Patt Chan FNP [Primary Care Provider] - Discharge Diet: Advance as tolerated Discharge Activity: Increase activity as tolerated Patient Instructions: GERD (Gastroesophageal Reflux Disease) (GEN) Activity Restrictions/Additional Instructions: Recommend avoidance of heartburn causing foods and medications. Stop anti- inflammatories such as ibuprofen Motrin Aleve. Raise head of bed. No spicy foods Start wearing your CPAP even for an hour or 2. As long as possible is recommended. Contact your DME to try a different mask if necessary. Return to emergency room if chest pain as you described yesterday reoccurs. At that time a cardiac catheterization will likely need to be done since the you had an indeterminant stress test result. Discharge Attestations Time Spent in Discharge Care*: greater than 30 min Quality Metrics Clinical Quality Measures [ No reported AMI, CVA or VTE this stay] Coding Level of Care Code Acute Code for Chg Fwd Diagnoses Chest pain at rest R07.9 YAHAIRA (obstructive sleep apnea) G47.33 Gastroesophageal reflux disease, unspecified whether esophagitis present K21.9 Esophagitis presence: esophagitis presence not specified
== END 2024-01-14 17:18 | disposition home or self-care (01) ==
LOC: ER 10:55 → CSU 13:15
PROVIDERS: Admitting Provider Internal Medicine; Emergency Provider Emergency Medicine; PCP Nurse Practitioner Family; Visit Provider Internal Medicine
DX: R00.1 Bradycardia, unspecified (principal); R07.9 Chest pain, unspecified; G47.33 Obstructive sleep apnea (adult) (pediatric); K21.9 Gastro-esophageal reflux disease without esophagitis; Z82.49 Family history of ischemic heart disease and other diseases of the circulatory system; E78.5 Hyperlipidemia, unspecified
CPT/HCPCS: 36415; 71045; 80053; 83690; 84484; 85025; 85610; 93005; 93017; 93350; 96361; 96372; 96374; 96376; 99285; G0378; J1650; J2270; J7042